=== PATIENT | female | born 1990 ===

== ENCOUNTER 2024-11-28 06:55 | Day surgery (SDC) | payer OTHER ==
[2024-11-28] MEDS ORDERED: POVIDONE-IODINE 118 ML BOTT TOP ONE (09:41)
[2024-11-28] MEDS ORDERED: IBU600 MG PO (10:57)
[2024-11-28] MEDS ORDERED: MORPHINE SULFATE 4 MG/ML VIAL IV ONE ×2 (11:15→11:45)
== END 2024-11-28 13:20 | disposition home or self-care (01) ==
LOC: CIR.AMB 06:55
PROVIDERS: ATTEND Obstetrics & Gynecology Gynecology
DX: N84.0 Polyp of corpus uteri (principal); N72 Inflammatory disease of cervix uteri; Z88.8 Allergy status to other drugs, medicaments and biological substances; N87.9 Dysplasia of cervix uteri, unspecified